=== PATIENT | female | born 1980 | race Two or more races ===

== ENCOUNTER → 2018-02-26 | Outpatient (CLI) | payer SELFPAY ==
--- NOTE | 2018-02-26 11:03 | RAD ---
HISTORY: Positive T spot Study: Chest PA and lateral Comparison: None Findings: The heart is within normal limits in size. The luis are normal. The lungs are well inflated and clear . No pleural effusions are identified. The bony thorax is unremarkable. IMPRESSION: No significant abnormality identified Reported By:
== END ==
LOC: RAD 10:23
PROVIDERS: ATTEND Internal Medicine
DX: R76.12 Nonspecific reaction to cell mediated immunity measurement of gamma interferon antigen response without active tuberculosis (principal)
CPT/HCPCS: 71046